=== PATIENT | female | born 1985 | race Caucasian/White ===

== ENCOUNTER 2019-09-26 08:15 | Emergency (ER) | payer BC, OTHER ==
[2019-09-26] MEDS ORDERED: AZITHROMYCIN 250 MG TAB ONE (09:00)
--- NOTE | 2019-09-26 09:16 | EDPHYS ---
Physician Documentation [facility] Name: Fabiola Nguyễn Age: 33 yrs Sex: Female : 1985 Arrival Date: 09/26/2019 Time: 08:21 Bed 16 Private MD: ED Physician Enrique Kelly HPI: 09/26 09:12 This 33 yrs old Female presents to ER via Ambulatory with complaints of sandeep Cough, Fever. 09:12 The patient or guardian reports airway noise, cough. Onset: The symptoms/episode sandeep began/occurred 3 day(s) ago. Severity of symptoms: At their worst the symptoms were mild, moderate, in the emergency department the symptoms have improved, mildly. Modifying factors: The symptoms are alleviated by nothing, the symptoms are aggravated by exertion, talking. Associated signs and symptoms: Pertinent positives: fever, rhinorrhea, sore throat. The patient has experienced similar episodes in the past, several times. 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 - Social history:: Smoking status: Patient/guardian denies using tobacco. - Ebola Screening: : Patient denies exposure to infectious person Patient denies travel to an Ebola-affected area in the 21 days before illness onset. - Family history:: not pertinent. ROS: 09:12 Constitutional: Negative for fever, chills, and weight loss, Eyes: Negative for injury, sandeep pain, redness, and discharge, ENT: Negative for injury, pain, and discharge, Neck: Negative for injury, pain, and swelling, Cardiovascular: Negative for chest pain, palpitations, and edema, Abdomen/GI: Negative for abdominal pain, nausea, vomiting, diarrhea, and constipation, Back: Negative for injury and pain, : Negative for injury, bleeding, discharge, and swelling, MS/Extremity: Negative for injury and deformity, Skin: Negative for injury, rash, and discoloration, Neuro: Negative for headache, weakness, numbness, tingling, and seizure, Psych: Negative for depression, anxiety, suicide ideation, homicidal ideation, and hallucinations, Allergy/Immunology: Negative for hives, rash, and allergies, Endocrine: Negative for neck swelling, polydipsia, polyuria, polyphagia, and marked weight changes, Hematologic/Lymphatic: Negative for swollen nodes, abnormal bleeding, and unusual bruising. 09:12 Respiratory: Positive for cough, with clear sputum. Exam: 09:12 Constitutional: This is a well developed, well nourished patient who is awake, alert, sandeep and in no acute distress. Head/Face: Normocephalic, atraumatic. Eyes: Pupils equal round and reactive to light, extra-ocular motions intact. Lids and lashes normal. Conjunctiva and sclera are non-icteric and not injected. Cornea within normal limits. Periorbital areas with no swelling, redness, or edema. ENT: Nares patent. No nasal discharge, no septal abnormalities noted. Tympanic membranes are normal and external auditory canals are clear. Oropharynx with no redness, swelling, or masses, exudates, or evidence of obstruction, uvula midline. Mucous membranes moist. Neck: Trachea midline, no thyromegaly or masses palpated, and no cervical lymphadenopathy. Supple, full range of motion without nuchal rigidity, or vertebral point tenderness. No Meningismus. Chest/axilla: Normal chest wall appearance and motion. Nontender with no deformity. No lesions are appreciated. Cardiovascular: Regular rate and rhythm with a normal S1 and S2. No gallops, murmurs, or rubs. Normal PMI, no JVD. No pulse deficits. Abdomen/GI: Soft, non-tender, with normal bowel sounds. No distension or tympany. No guarding or rebound. No evidence of tenderness throughout. Back: No spinal tenderness. No costovertebral tenderness. Full range of motion. Skin: Warm, dry with normal turgor. Normal color with no rashes, no lesions, and no evidence of cellulitis. MS/ Extremity: Pulses equal, no cyanosis. Neurovascular intact. Full, normal range of motion. Neuro: Awake and alert, GCS 15, oriented to person, place, time, and situation. Cranial nerves II-XII grossly intact. Motor strength 5/5 in all extremities. Sensory grossly intact. Cerebellar exam normal. Normal gait. Psych: Awake, alert, with orientation to person, place and time. Behavior, mood, and affect are within normal limits. 09:12 Respiratory: the patient does not display signs of respiratory distress, Respirations: normal, no acute changes, labored breathing, is not present, Breath sounds: bronchial sounds, rhonchi, Respiratory rate: 16 Vital Signs: 08:30 BP 137 / 86; Pulse 104; Resp 16; Temp 98.7(O); Pulse Ox 99% on R/A; Weight 88.45 kg; ss Height 5 ft. 3 in. (160.02 cm); Pain 0/10; 08:30 Body Mass Index 34.54 (88.45 kg, 160.02 cm) ss MDM: 08:26 Patient medically screened. [facility] 09:14 Data reviewed: vital signs, nurses notes. [facility] Administered Medications: 09:00 Drug: Zithromax 500 mg Route: PO; bp 09:23 Follow up: Response: No adverse reaction bp Disposition: 09/26/19 09:15 Discharged to Home. Impression: Cough, Acute upper respiratory infection, unspecified. - Condition is Stable. - Discharge Instructions: Upper Respiratory Infection, Adult, Cool Mist Vaporizer, Upper Respiratory Infection, Adult, [id number], Cough, Adult, [id number], Cough, Adult. - Prescriptions for Bromfed DM 2- 30-10 mg/5 mL Oral syrup - take 10 milliliter by ORAL route every 6 hours; 160 milliliter. Sheron- D 12 Hour 60-120 mg Oral Tablet Sustained Release 12 hr - take 1 tablet by ORAL route every 12 hours As needed; 20 tablet. Zithromax 500 mg Oral Tablet - take 1 tablet by ORAL route once daily for 4 days; 4 tablet. - Medication Reconciliation Form, Thank You Letter, Antibiotic Education, Prescription Opioid Use form. - Follow up: Private Physician; When: 2 - 3 days; Reason: Recheck today's complaints, Continuance of care, Re-evaluation by your physician. - Problem is new. - Symptoms have improved. Signatures: Enrique Kelly MD MD cha Smirch, Shelby, RN RN Rickey Aguilar, SANDRA RN bp Corrections: (The following items were deleted from the chart) 09:23 09:15 09/26/2019 09:15 Discharged to Home. Impression: Cough; Acute upper respiratory bp infection, unspecified. Condition is Stable. Forms are Medication Reconciliation Form, Thank You Letter, Antibiotic Education, Prescription Opioid Use. Follow up: Private Physician; When: 2 - 3 days; Reason: Recheck today's complaints, Continuance of care, Re-evaluation by your physician. Problem is new. Symptoms have improved. sandeep
--- NOTE | 2019-09-26 09:16 | ER ---
Nurse's Notes [facility] Name: Fabiola Nguyễn Age: 33 yrs Sex: Female : 1985 Arrival Date: 09/26/2019 Time: 08:21 Bed 16 Private MD: Diagnosis: Cough;Acute upper respiratory infection, unspecified Presentation: 09/26 08:29 Presenting complaint: Patient states: hacking cough x 2 days. Transition of care: ss patient was not received from another setting of care. Onset of symptoms was September 24, 2019. Risk Assessment: Do you want to hurt yourself or someone else? Patient reports no desire to harm self or others. Initial Sepsis Screen: Does the patient meet any 2 criteria? HR > 90 bpm. Does the patient have a suspected source of infection? No. Patient's initial sepsis screen is negative. Care prior to arrival: None. 08:29 Method Of Arrival: Ambulatory ss 08:29 Acuity: JUDY 4 ss Triage Assessment: 09:00 General: Appears in no apparent distress. comfortable, Behavior is calm, cooperative, bp appropriate for age. Pain: Denies pain. EENT: Reports pain when swallowing. Neuro: No deficits noted. Cardiovascular: No deficits noted. Respiratory: No deficits noted. GI: No signs and/or symptoms were reported involving the gastrointestinal system. : No signs and/or symptoms were reported regarding the genitourinary system. Derm: No deficits noted. Musculoskeletal: No deficits noted. 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 - Social history:: Smoking status: Patient/guardian denies using tobacco. - Ebola Screening: : Patient denies exposure to infectious person Patient denies travel to an Ebola-affected area in the 21 days before illness onset. - Family history:: not pertinent. Screenin:22 Abuse screen: Denies threats or abuse. Denies injuries from another. Nutritional bp screening: No deficits noted. Tuberculosis screening: No symptoms or risk factors identified. Fall Risk None identified. Assessment: 09:00 General: SEE TRIAGE NOTE. bp 09:18 Reassessment: PT D/C HOME AMBULATORY, DX WITH URI. bp Vital Signs: 08:30 BP 137 / 86; Pulse 104; Resp 16; Temp 98.7(O); Pulse Ox 99% on R/A; Weight 88.45 kg; Height 5 ft. 3 in. (160.02 cm); Pain 0/10; 08:30 Body Mass Index 34.54 (88.45 kg, 160.02 cm) ED Course: 08:21 Patient arrived in ED. mr 08:26 Enrique Kelly MD is Attending Physician. [facility] 08:30 Triage completed. 08:30 Gale Salguero, RN is Primary Nurse. Tesha 08:30 Arm band placed on right wrist. 09:22 Patient has correct armband on for positive identification. Bed in low position. Call bp light in reach. Side rails up X2. 09:22 No provider procedures requiring assistance completed. Patient did not have IV access bp during this emergency room visit. Administered Medications: 09:00 Drug: Zithromax 500 mg Route: PO; bp 09:23 Follow up: Response: No adverse reaction bp Outcome: 09:15 Discharge ordered by . sandeep 09:22 Discharged to home ambulatory. bp 09:22 Condition: stable 09:22 Discharge instructions given to patient, Instructed on discharge instructions, follow up and referral plans. medication usage, Demonstrated understanding of instructions, follow-up care, medications, Prescriptions given X 3. 09:23 Patient left the ED. bp Signatures: Enrique Kelly MD MD cha Rivera, Mary mr Jacquelin Hein RN RN Gale Salguero RN RN jlRickey Xie RN RN bp
[2019-09-26 09:46] VITALS: BP 137/86; TEMP 98.7; O2SAT 99
== END 2019-09-26 09:23 | disposition home or self-care (01) ==
LOC: ER 08:15
DX: J06.9 Acute upper respiratory infection, unspecified (principal)
CPT/HCPCS: 99283